=== PATIENT | male | born 1975 | race Caucasian/White ===

== ENCOUNTER → 2017-03-18 | Outpatient (CLI) | payer OTHER ==
--- NOTE | 2017-03-24 14:30 | SLEEP ---
DATE OF STUDY: 03/18/2017 REFERRING PERSON: Neri Eldridge PA-C. The patient is 42-year-old with a BMI of 27.3. The patient underwent home sleep study performed by [facility]. The total recording time was 523 minutes. During the night study, the patient had no central apneas or mixed apneas, but there were 131 obstructive apneas. The patient also had 14 hypopneas. The patient's apnea-hypopnea index was 16.6 per hour with a supine index of 22 per hour. Nocturnal oximetry study revealed the patient spent 8 minutes with oxygen saturation of less than 90%. Mean heart rate was 55 beats per minute. IMPRESSION: 1. Moderate sleep apnea-hypopnea syndrome with an AHI of 16.6 per hour. 2. Mild nocturnal hypoxia secondary to obstructive sleep apnea. RECOMMENDATIONS: 1. The patient is clinically symptomatic and would benefit from treatment of patient's sleep apnea with either trial of oral appliance or in-lab CPAP titration. 2. If the patient undergo in-lab CPAP titration, then he should be followed up in 4-6 weeks to assess compliance with CPAP and to document clinical improvement. 3. Weight loss is strongly advised. 4. Avoid BEVERAGE HOST depressants. 5. Caution regarding driving until symptoms of sleep apnea resolve with the above recommendations. RIVERA ORELLANA MD DR: CB/lakisha JOB#: [id number] / [id number] [facility] NERI ELDRIDGE PA-C
== END | disposition home or self-care (01) ==
LOC: RT 10:20
PROVIDERS: ATTEND Physician Assistant Medical
DX: G47.33 Obstructive sleep apnea (adult) (pediatric) (principal); R06.83 Snoring; Q79.6 Ehlers-Danlos syndromes
CPT/HCPCS: G0399

== ENCOUNTER → 2018-08-26 | Outpatient (CLI) | payer OTHER ==
--- NOTE | 2018-08-26 10:44 | CARD ---
MR#: [id number] Date of Study: 08/26/2018 Ordering Physician: SIDDHARTH YOUNG, Referring Physician: SIDDHARTH YOUNG, Tech: La Lauren APPROVED REPORT EXAM: Two-dimensional and M-mode echocardiogram with Doppler and color Doppler. Other Information Quality : GoodHR: 67bpm INDICATION Hypertension/HCVD 2D DIMENSIONS RVDd3.0 (2.9-3.5cm)Left Atrium(2D)3.8 (1.6-4.0cm) IVSd0.9 (0.7-1.1cm)Aortic Root(2D)3.3 (2.0-3.7cm) LVDd5.8 (3.9-5.9cm)LVOT Diameter2.3 (1.8-2.4cm) PWd1.3 (0.7-1.1cm)LVDs4.4 (2.5-4.0cm) FS (%) 24.9 %SV81.3 ml Aortic Valve AoV Peak Luis.167.3cm/sAoV VTI32.3cm AO Peak GR.11.2mmHgLVOT Peak Luis.100.9cm/s LVOT VTI 19.80cmAO Mean GR.7mmHg REYNALDO (VMAX)1.65za9JPN (VTI)2.49cm2 Mitral Valve MV E Dddmnbfu86.8cm/sMV DECEL MKRL912zr MV A Llqejrvh28.0cm/sMV WLJ40cw E/A Ratio1.3MVA (PHT)2.29cm2 TDI E/Lateral E'5.1E/Medial E'6.5 Tricuspid Valve TR P. Zztpxsku330ji/sRAP FRJXPFHL3aqIn TR Peak Gr.94ggFqEOHK45dyQw Pulmonary Vein S1 Cspsirfl99.8cm/sD2 Kysfvbpv84.5cm/s PVa [id number] LEFT VENTRICLE The left ventricle is normal size. There is borderline concentric left ventricular hypertrophy. The l eft ventricular systolic function is normal. The Ejection Fraction is 55%. There is normal LV segment al wall motion. The left ventricular diastolic function and filling is normal for age. RIGHT VENTRICLE The right ventricle is normal size. There is normal right ventricular wall thickness. The right ventr icular systolic function is normal. ATRIA The left atrium size is normal. The right atrium size is normal. The interatrial septum is intact wit h no evidence for an atrial septal defect or patent foramen ovale as noted on 2-D or Doppler imaging. AORTIC VALVE The aortic valve is thickened but opens well. Doppler and Color Flow revealed mild aortic regurgitati on. There is no significant aortic valvular stenosis. MITRAL VALVE The mitral valve is normal in structure and function. Doppler and Color Flow revealed trace mitral re gurgitation. TRICUSPID VALVE The tricuspid valve is normal in structure and function. Doppler and Color Flow revealed mild tricusp id regurgitation with an estimated PAP of 27 mmHg. There is no tricuspid valve stenosis. PULMONIC VALVE The pulmonary valve is normal in structure and function. Doppler and Color Flow revealed trace pulmon ic valvular regurgitation. GREAT VESSELS The aortic root is normal in size. Normal pulmonary venous flow (Doppler). The IVC was not visualized . PERICARDIAL EFFUSION There is no evidence of significant pericardial effusion. Critical Notification Critical Value: No <Conclusion> The left ventricular systolic function is normal. The Ejection Fraction is 55%. There is normal LV segmental wall motion. Mild aortic regurgitation. Trace mitral regurgitation. Mild tricuspid regurgitation with an estimated PAP of 27 mmHg. There is no evidence of significant pericardial effusion. Signed by : Mainor Alba, Electronically Approved : 08/26/2018 10:43:40
== END | disposition home or self-care (01) ==
LOC: ECHO 08:14
PROVIDERS: ATTEND Internal Medicine Cardiovascular Disease
DX: I08.2 Rheumatic disorders of both aortic and tricuspid valves (principal); I10 Essential (primary) hypertension
CPT/HCPCS: 93306